=== PATIENT | female | born 1935 | race Caucasian/White ===

== ENCOUNTER 2018-10-10 16:03 | Emergency (ER) | payer OTHER ==
[2018-10-10 17:07] LABS: ADD MAN DIFF? NO
[2018-10-10 17:14] LABS: WHITE BLOOD COUNT 7.8 10^3/ul (4.8-10.8)
[2018-10-10 17:14] LABS: BASOPHILS % 0.1 % (0.0-2.0); EOSINOPHILS % 0.4 % (0.0-7.0); HEMATOCRIT 32.6 % (37.0-47.0); HEMOGLOBIN 10.1 g/dl (12.0-16.0); LYMPHOCYTES # 1.3 10^3/ul (0.8-2.9); LYMPHOCYTES % 16.3 % (15.0-51.0); MEAN CORPUSCULAR VOLUME 90.3 fl (82.0-101.0); MEAN PLATELET VOLUME 10.6 fl (7.4-10.4); MONOCYTE # 0.9 10^3/ul (0.3-0.9); MONOCYTES % 11.1 % (0.0-11.0); NEUTROPHIL # 5.6 10^3/ul (1.6-7.5); NEUTROPHILS % 71.7 % (39.0-77.0); PLATELET COUNT 198 10^3/UL (140-415); RED BLOOD COUNT 3.61 10^6/ul (4.20-5.40); RED CELL DISTRIBUTION WIDTH 14.8 % (11.5-14.5)
[2018-10-10 17:32] LABS: INR 1.06; PROTIME 13.9 Sec (11.9-14.9); PT RATIO 1.1
[2018-10-10 17:33] LABS: ALANINE AMINOTRANSFERASE 131 IU/L (13-69); ALBUMIN 2.4 g/dl (3.3-4.9); ALBUMIN/GLOBULIN RATIO 0.88; ALKALINE PHOSPHATASE 164 IU/L (42-121); ANION GAP 5 (5-13); ASPARTATE AMINO TRANSFERASE 206 IU/L (15-46); BILIRUBIN,INDIRECT 0.5 mg/dl (0-1.1); BILIRUBIN,TOTAL 0.5 mg/dl (0.2-1.3); BLOOD UREA NITROGEN 25 mg/dl (7-20); CALCIUM 8.3 mg/dl (8.4-10.2); CARBON DIOXIDE 29 mmol/L (21-31); CHLORIDE 100 mmol/L (97-110); CREATININE 0.62 mg/dl (0.44-1.00); GLUCOSE 95 mg/dl (70-220); PARTIAL THROMBOPLASTIN TIME 28.3 Sec (23.0-35.0); POTASSIUM 3.6 mmol/L (3.5-5.1); SODIUM 134 mmol/L (135-144); TOTAL PROTEIN 5.1 g/dl (6.1-8.1)
[2018-10-10 17:43] LABS: TROPONIN-I < 0.012 ng/ml (0.000-0.120)
[2018-10-10 20:07] LABS: ADD UMIC YES; UR ASCORBIC ACID NEGATIVE (NEGATIVE); UR BACTERIA MANY /HPF (NONE SEEN); UR BILIRUBIN (Dip) NEGATIVE (NEGATIVE); UR BLOOD (Dip) 1+ mg/dL (NEGATIVE); UR CLARITY CLOUDY (CLEAR); UR COLOR AMBER (YELLOW); UR GLUCOSE (Dip) NEGATIVE (NEGATIVE); UR KETONES (Dip) NEGATIVE (NEGATIVE); UR LEUKOCYTE ESTERASE (Dip) 2+ Leu/ul (NEGATIVE); UR MUCUS MANY /HPF (NONE SEEN); UR NITRITE (Dip) NEGATIVE (NEGATIVE); UR RBC 3 /HPF (0-5); UR SPECIFIC GRAVITY (Dip) 1.016 (1.003-1.030); UR SQUAMOUS EPITHELIAL CELL FEW /HPF (FEW); UR TOTAL PROTEIN (Dip) 1+ mg/dl (NEGATIVE); UR UROBILINOGEN (Dip) 2+ mg/dL (NEGATIVE); UR WBC > 182 /HPF (0-5)
[2018-10-10] MEDS: CEFTRIAXONE 1 GM/50 ML (PMX) 50 ML IVPB (20:41)
[2018-10-10] MEDS: VANCOMYCIN 1 GM (PMX) 250 ML IVPB (21:30)
[2018-10-10 21:46] LABS: LIPASE 35 U/L (23-300)
[2018-10-10 21:47] LABS: AMYLASE < 30 U/L (11-123)
== END 2018-10-10 22:07 | disposition short-term general hospital (02) ==
LOC: E/R 22:07
DX: K64.0 First degree hemorrhoids (principal); K80.50 Calculus of bile duct without cholangitis or cholecystitis without obstruction; J18.1 Lobar pneumonia, unspecified organism; R40.2142 Coma scale, eyes open, spontaneous, at arrival to emergency department; R40.2242 Coma scale, best verbal response, confused conversation, at arrival to emergency department; R40.2362 Coma scale, best motor response, obeys commands, at arrival to emergency department; I10 Essential (primary) hypertension; Z85.828 Personal history of other malignant neoplasm of skin
CPT/HCPCS: 71045; 74176; 80053; 81001; 82150; 83690; 84484; 85025; 85610; 85730; 86850; 86900; 86901; 87086; 93005; 96374; 99291-25